=== PATIENT | female | born 1970 | race Caucasian/White ===

== ENCOUNTER 2023-01-03 22:46 | Emergency (ER) | payer OTHER ==
[~2023-01-03] VITALS: Ht 162.6 cm; Wt 61.4 kg
[~2023-01-03 22:46] MED LIST: NOCURR
[2023-01-03 22:49] VITALS: TEMP 97.7
[2023-01-04] MEDS ORDERED: TRIAMCINOLONE ACETONIDE 40 MG/ML VIAL IM ONE (01:30)
[2023-01-04] MEDS ORDERED: BUPIVACAINE HCL/PF 0.25% 10 ML VIAL ID ONE (01:30)
[2023-01-04] MEDS ORDERED: LIDOCAINE 1% 10 ML VIAL IM ONE (01:30)
[2023-01-04 01:49] LABS: BASOPHILS % (AUTO) 0.6 % (0.0-2.0); EOSINOPHILS % (AUTO) 1.8 % (1.0-6.0); HEMATOCRIT 40.5 % (36-46); HEMOGLOBIN 13.8 g/dL (12.0-16.0); LYMPHOCYTES % (AUTO) 33.4 % (22.0-44.0); MEAN CORPUSCULAR HEMOGLOBIN 29.2 pg (26.0-34.0); MEAN CORPUSCULAR HGB CONC 34.2 G/dL (31.0-37.0); MEAN CORPUSCULAR VOLUME 86 fL (80-100); MONOCYTES # (AUTO) 0.3 K/uL (0.1-1.0); MONOCYTES % (AUTO) 5.4 % (2.0-9.0); NEUTROPHILS # (AUTO) 3.5 K/uL (1.8-7.7); NEUTROPHILS % (AUTO) 58.8 % (40.0-70.0); PLATELET COUNT (AUTO) 223 K/uL (150-450); RED BLOOD CELL COUNT(AUTO) 4.74 MIL/uL (4.00-5.20); RED CELL DISTRIBUTION WIDTH 13.2 % (11.5-14.5); WHITE BLOOD COUNT (AUTO) 5.9 K/uL (4.5-11.0)
[2023-01-04 01:57] LABS: ANION GAP 8 mmol/L (8-16); CALCIUM, TOTAL 9.3 mg/dL (8.8-10.5); CARBON DIOXIDE 29 mmol/L (22-29); CHLORIDE 105 mmol/L (98-107); CREATININE 0.64 mg/dL (0.60-1.30); GLOMERULAR FILTR. RATE CALC > 60 mL/min (>60); GLUCOSE,RANDOM 106 mg/dL (70-110); POTASSIUM 4.2 mmol/L (3.5-5.1); SODIUM SERUM 142 mmol/L (136-145); UREA NITROGEN, BLOOD 14 mg/dL (7-18)
[2023-01-04 02:03] LABS: ALANINE AMINOTRANSFERASE 25 U/L (12-78); ALBUMIN 3.6 g/dL (3.4-5.0); ALKALINE PHOSPHATASE 75 U/L (46-116); ASPARTATE AMINOTRANSFERASE 15 U/L (15-37); BILIRUBIN,TOTAL 0.5 mg/dL (0.1-1.0); TOTAL PROTEIN, SERUM 6.9 g/dL (6.4-8.2)
[2023-01-04 02:05] LABS: TROPONIN I-HIGH SENSITIVITY 22 ng/L (<51)
[2023-01-04] MEDS ORDERED: CYCL-448 PO (02:09)
[2023-01-04 02:15] VITALS: BP 150/88; PULSE 52; RESP 17
== END 2023-01-04 02:18 | disposition home or self-care (01) ==
LOC: EMS 22:47
DX: M54.6 Pain in thoracic spine (principal)
CPT/HCPCS: 99285; 80053; 84484; 85025; 36415; 93005; 20550; 71045; 96372; J3490 ×2; J3301

== ENCOUNTER 2024-08-13 16:21 | Emergency (ER) | payer OTHER ==
[~2024-08-13] VITALS: Ht 162.6 cm; Wt 59.1 kg
[~2024-08-13 16:21] MED LIST changes: +CYCL-448 PO
[2024-08-13 16:30] VITALS: TEMP 98.5
[2024-08-13] MEDS ORDERED: MAGN64TA14 PO (16:30)
[2024-08-13] MEDS ORDERED: IBUP-45 PO (16:30)
[2024-08-13] MEDS: TraMADol HCL 50 MG TABLET PO ONE (21:38)
[2024-08-13] MEDS: IBUPROFEN 400 MG TABLET PO ONE (22:35)
[2024-08-13] MEDS: methocarbamoL 500 MG TABLET PO ONE (22:35)
[2024-08-13] MEDS: ACETAMINOPHEN 325 MG TABLET PO ONE (22:35)
[2024-08-13] MEDS: METOCLOPRAMIDE HCL 10 MG TABLET PO ONE (22:36)
[2024-08-14 01:16] VITALS: BP 115/68; PULSE 63; RESP 16; O2SAT 96
[2024-08-14] MEDS ORDERED: METO5TAB95 PO (01:28)
[2024-08-14] MEDS ORDERED: METH-812 PO (01:28)
== END 2024-08-14 01:41 | disposition home or self-care (01) ==
LOC: EMS 16:21
DX: G44.209 Tension-type headache, unspecified, not intractable (principal); M54.2 Cervicalgia
CPT/HCPCS: 99284; Z7502; Z7610